=== PATIENT | female | born 1945 | race Caucasian/White ===

== ENCOUNTER 2018-10-12 11:37 | Inpatient (IN) | payer OTHER ==
[2018-10-12] MEDS ORDERED: LR 1,000 ML IV ONE (11:53)
[2018-10-12] MEDS ORDERED: LIDOCAINE 1% 300 MG/30 ML SDV ONE (12:44)
[2018-10-12] MEDS ORDERED: BUPIVACAINE 0.5% 30 ML SDV ONE (12:44)
--- NOTE | 2018-10-12 13:43 | PDHPUP ---
History & Physical Update H&P update statement: This history and physical update is based on an assessment of the patient which was completed after admission or registration (within 24 hours), but prior to the surgery/procedure. H&P update: H&P reviewed & patient examined, no change in patient's condition since H&P completed
[2018-10-12] MEDS ORDERED: ceFAZolin 2 GM/DEXTROSE 100 ML IV ONE (13:44)
[2018-10-12] MEDS ORDERED: MIDAZOLAM 2 MG/2 ML VIAL IVP ONE (14:09)
--- NOTE | 2018-10-12 14:12 | PDANEPAE ---
ANE History of Present Illness Ventral hernia hernia repair ANE Past Medical History - Cardiovascular History Hx Hypertension: No Hx Arrhythmias: No Hx Chest Pain: No Hx Coronary Artery / Peripheral Vascular Disease: No Hx CHF / Valvular Disease: No Hx Palpitations: No - Pulmonary History Hx COPD: No Hx Asthma/Reactive Airway Disease: No Hx Recent Upper Respiratory Infection: No Hx Oxygen in Use at Home: No Hx Sleep Apnea: No Sleep Apnea Screening Result - Last Documented: Positive - Neurologic History Hx Cerebrovascular Accident: No Hx Seizures: No Hx Dementia: No - Endocrine History Hx Diabetes: Yes Hypothyroid: No Hyperthyroid: No Obesity: moderate Endocrine History Comment: INDDM SINCE 1998 - Renal History Hx Renal Disorders: No Renal History Comment: FREQUENCY - Liver History Hx Hepatic Disorders: No - Neurological & Psychiatric Hx Hx Neurological and Psychiatric Disorders: Yes Neurological / Psychiatric History Comment: SITUATIONAL ANXIETY - Cancer History Hx Cancer: No - Congenital Disorder History Hx Congenital Disorders: No - GI History GERD: mild Hx Gastrointestinal Disorders: Yes Gastrointestinal History Comment: PREV WAGNER FUNDOPLICATION. STILL HAS SOME HEARTBURN - Other Health History Other Health History: FIBROMYALGIA - Chronic Pain History Chronic Pain: No (GENERALIZED FROM FIBROMYALGIA) - Surgical History Prior Surgeries: HERNIA REPAIR. RT TOTAL KNEE 2012. RT TOTAL KNEE REVISION. LT KNEE RECONSTRUCTION TO STRENGTHEN. LT KNEE REMVL KNEE CAP. STACI. WAGNER FUNDOPLICATION 1988. RT WRIST FUSION ANE Review of Systems Review of Systems: - Exercise capacity METS (RN): 4 METS ANE Patient History - Allergies Allergies/Adverse Reactions: No Known Allergies Allergy (Unverified 02/25/16 15:12) - Home Medications Home Medications: Cholecalciferol Vit D3 [Vitamin D3 (*)] 5,000 units PO DAILY 02/25/16 [Last Taken 10/11/18] Gabapentin [Neurontin 300 MG (*)] 600 mg PO TID 02/25/16 [Last Taken 10/11/18] INSULIN LISPRO humALOG 75/25 [humALOG MIX 75-25] 40 units SC BIDMEAL 02/25/16 [ Last Taken 10/11/18] Nortriptyline HCl [Pamelor 25 mg (*)] 25 mg PO HS 02/25/16 [Last Taken 10/12/18] metFORMIN HCL [Glucophage 500 mg (*)] 1,000 mg PO BIDMEAL 02/25/16 [Last Taken 10/11/18] Linzess 10/11/18 [Last Taken 10/11/18] Losartan Potassium 10/11/18 [Last Taken 10/11/18] Ocuvite 10/11/18 [Last Taken 10/11/18] Pantoprazole Sodium 10/11/18 [Last Taken 10/12/18] Ranitidine HCl 10/11/18 [Last Taken 10/04/18] - NPO status NPO Status: no food or drink >8 hours NPO Since - Liquids (Date): 10/12/18 NPO Since - Liquids (Time): 10:00 NPO Since - Solids (Date): 10/11/18 NPO Since - Solids (Time): 22:00 - Smoking Hx Smoking Status: Never smoked ANE Labs/Vital Signs - Labs Result Diagrams: 10/12/18 12:30 - Vital Signs Blood Pressure: 159/82 Heart Rate: 100 Respiratory Rate: 16 O2 Sat (%): 96 Height: 157.48 cm Weight: 99.337 kg ANE Physical Exam - Airway Neck exam: decreased ROM Mallampati Score: Class 1 Mouth exam: normal dental/mouth exam, poor dentition - Pulmonary Pulmonary: no respiratory distress, no rales or rhonchi - Cardiovascular Cardiovascular: regular rate and rhythym (Occ skip beat) - ASA Status ASA Status: III ANE Anesthesia Plan Anesthesia Plan: general endotracheal anesthesia Regional Anesthesia: TAP block
[2018-10-12] MEDS ORDERED: PROPOFOL/EMULSION 500 MG/50 ML BOTTLE IV ONE ×2 (14:25→14:26)
[2018-10-12] MEDS ORDERED: fentaNYL 250 MCG/5 ML INJ ONE (14:25)
[2018-10-12] MEDS ORDERED: ROCURONIUM 100 MG/10 ML VIAL ONE (14:26)
[2018-10-12] MEDS ORDERED: ONDANSETRON 4 MG/2 ML VIAL ONE (14:26)
[2018-10-12] MEDS ORDERED: DEXAMETHASONE 4 MG/ML VIAL ONE (14:26)
[2018-10-12] MEDS ORDERED: GLYCOPYRROLATE 0.2 MG/1 ML VIAL ONE (14:26)
[2018-10-12] MEDS ORDERED: ROPIVACAINE HCL 150 MG/30 ML INJ ONE (16:11)
[2018-10-12] MEDS ORDERED: SUGAMMADEX SODIUM 200 MG/2 ML VIAL IVP ONE (16:53)
[2018-10-12] MEDS ORDERED: fentaNYL 100 MCG/2 ML INJ ONE ×2 (17:03→17:47)
[2018-10-12] MEDS ORDERED: ONDANSETRON 4 MG/2 ML VIAL IVP PRN ×2 (17:14→17:24)
[2018-10-12] MEDS ORDERED: ZOLPIDEM TARTRATE 5 MG TAB PO PRN (17:14)
[2018-10-12] MEDS ORDERED: METOCLOPRAMIDE 10 MG/2 ML VIAL IVP PRN (17:14)
--- NOTE | 2018-10-12 17:20 | POSTOPPROG ---
Post Op Note Date of Operation: 10/12/18 Surgeon: Michael Wheeler [employer] Engine Mechanic: carlos chicas pac Anesthesiologist: Mj Anesthesia: GET(General Endotracheal) Pre-op Diagnosis: ventral incisional hernia recurrent Post-op Diagnosis: same Procedure: Lap ventral hernia repair with 20x25 cm symbotex mesh Findings: fenestrated midline 3 cm hernia Inf/Abcess present in the surg proc area at time of surgery?: No EBL: Minimal Specimen(s): none
[2018-10-12] MEDS ORDERED: HYDROmorphONE/DILAUDID 2 MG/ML INJ ONE (17:22)
[2018-10-12] MEDS ORDERED: PROMETHAZINE HCL 25 MG/ML INJ IVP PRN (17:24)
[2018-10-12] MEDS ORDERED: NALOXONE HCL 0.4 MG/ML INJ IVP PRN (17:24)
[2018-10-12] MEDS: HYDROmorphONE/DILAUDID 2 MG/ML INJ IVP PRN ×4 (17:25→18:03)
[2018-10-12] MEDS: fentaNYL 100 MCG/2 ML INJ IVP PRN ×2 (17:48→18:02)
[2018-10-12] MEDS: HYDROmorphONE/DILAUDID 1 MG/ML INJ IVP PRN ×3 (20:09→21:56)
[2018-10-12] MEDS: GABAPENTIN 300 MG CAP PO SCH (20:15)
[2018-10-12] MEDS: metFORMIN HCL 500 MG TAB PO SCH (20:16)
[2018-10-12] MEDS: NORTRIPTYLINE HCL 25 MG CAP PO SCH (20:16)
[2018-10-12] MEDS: INSULIN LISPRO humALOG 75/25 100 UNIT/ML SYR SC SCH (20:17)
[2018-10-12] MEDS ORDERED: GABAPENTIN 300 MG CAP PO SCH (22:00)
[2018-10-12] MEDS: KETOROLAC 15 MG/1 ML SDV IVP SCH (23:54)
--- NOTE | 2018-10-13 03:37 | GOP ---
[f rep st] OPERATIVE REPORT DATE OF OPERATION: SURGEON: Michael Wheeler MD BOOTMAKER HAND: Marian CHICAS. Use of a PA for assistance in this case is standard and required for safety. ANESTHESIA: General endotracheal anesthesia. ANESTHESIOLOGIST: Leny Barker MD. PREOPERATIVE DIAGNOSIS: Ventral incisional hernia. POSTOPERATIVE DIAGNOSIS: Ventral incisional hernia. PROCEDURE PERFORMED: Laparoscopic ventral incisional hernia repair, recurrent ventral hernia repair, with Symbotex mesh 20 x 25 cm. FINDINGS: SPECIMENS: None. ESTIMATED BLOOD LOSS: 5 mL. INDICATIONS: This is a 72-year-old woman known to us for prior paraesophageal hernia who presents with ventral incisional hernias. DESCRIPTION OF PROCEDURE: Patient was brought into the operating room. After induction of endotracheal anesthesia in supine position, her abdomen was prepped with chlorhexidine and draped sterilely. A time-out procedure was performed according to institutional standards. Local anesthetic was infused in skin and subcutaneous tissues at the trocar site. Optical trocar placement was done in the left upper quadrant. The abdomen was insufflated fully to 15 torr with carbon dioxide. Working trocars were placed into the lower midline and right flank under direct visualization. Extensive adhesiolysis was performed of bowel and omentum to the anterior abdominal wall, and after complete dissection of the space with the hernias, it was measured to be 15 cm x 3 to 4 cm across. A 15 x 10 cm mesh would not have been adequate. Therefore , a 20 x 25 cm mesh was chosen. The mesh was placed into the abdomen through a midline incision through one of the hernias. This was reapproximated with 4-0 Monocryl. 0 Vicryl was used to approximate the mesh to the anterior abdominal wall using a suture passing device, and it was tacked in circumferentially using absorbable fixation. After ensuring it was flat and at a pressure of 8 torr, the area was ensured to be hemostatic. Needle, instrument, and sponge counts were verified to be correct. All ports were closed at the skin level using 4-0 Monocryl and Dermabond. The patient was awakened. A TAP block was placed by Anesthesia before extubation. She was taken to the recovery room in stable condition. No immediate complications. COMPLICATIONS: None. /[id number]/MODL MTDD
[2018-10-13] MEDS: GABAPENTIN 300 MG CAP PO SCH ×4 (06:11→21:33)
[2018-10-13] MEDS: KETOROLAC 15 MG/1 ML SDV IVP SCH ×4 (06:11→23:41)
[2018-10-13] MEDS ORDERED: ENOXAPARIN 30 MG/0.3 ML SYR SC SCH (09:00)
--- NOTE | 2018-10-13 09:03 | SOAPPROG ---
SOOMAR Progress Note Assessment/Plan: Assessment/Plan: Postop day 1 status post laparoscopic ventral hernia repair with 20 x 25 cm mesh. Patient is doing as well as expected normal pessimistic view of her pain and progression. No signs of complication at this time. Regular rate and rhythm Clear to auscultation Abdomen soft nondistended incisions clean dry and intact. No signs of recurrent hernia. Extremities with trace edema Overall doing well Blood sugar under fairly good control last POC 169 Patient feels her pain is not well-controlled at this time. Will continue to modify her oral analgesics to control pain. Anticipate discharge in the next 24 -48 hours. Prescriptions and discharge information in the chart 10/13/18 09:01 Objective: Vital Signs Temp Pulse Resp BP Pulse Ox 36.7 C 86 18 122/63 H 90 L 10/13/18 08:00 10/13/18 08:00 10/13/18 08:00 10/13/18 08:00 10/13/18 08:00 Laboratory Results 10/12/18 12:30 10/12/18 10/13/18 10/14/18 05:59 05:59 05:59 Intake Total 1030 Output Total 560 Balance 470 ICD10 Worksheet Patient Problems: Problems Problem Status Onset Paraesophageal hernia Acute
[2018-10-13] MEDS: INSULIN LISPRO humALOG 75/25 100 UNIT/ML SYR SC SCH ×2 (09:13→17:39)
[2018-10-13] MEDS: metFORMIN HCL 500 MG TAB PO SCH ×2 (09:14→17:39)
[2018-10-13] MEDS: PANTOPRAZOLE SODIUM 40 MG TAB PO SCH (09:14)
[2018-10-13] MEDS: oxyCODONE IR 5 MG TAB PO PRN ×4 (11:10→23:41)
--- NOTE | 2018-10-13 12:04 | ASMTCMCOM ---
CM Note CM Note Notes: Reviewed chart, pt admitted for scheduled hernia repair. She lives at home with her , no therapies ordered. Anticipate pt will dc home when medically stable. CM available for any changes. DC Plan: Independent Date Signed: 10/13/2018 12:04 PM Electronically Signed By:Dee Farah RN
[2018-10-13] MEDS: NORTRIPTYLINE HCL 25 MG CAP PO SCH (21:33)
[2018-10-14] MEDS: oxyCODONE IR 5 MG TAB PO PRN ×6 (03:30→22:01)
[2018-10-14] MEDS: GABAPENTIN 300 MG CAP PO SCH ×4 (05:07→21:57)
[2018-10-14] MEDS: KETOROLAC 15 MG/1 ML SDV IVP SCH ×4 (05:07→23:41)
--- NOTE | 2018-10-14 07:50 | SOAPPROG ---
SOAP Progress Note Assessment/Plan: Assessment:c/o pain. min ambulation/activity yesterday. avss. abd soft. incis clean. s/p lap ventral. slow progress. cont pain control efforts. pt/ ot to assist. hopeful dc tomorrow. Plan: 10/14/18 07:50 Objective: Vital Signs Temp Pulse Resp BP Pulse Ox 36.9 C 89 18 117/68 95 10/14/18 03:28 10/14/18 03:28 10/14/18 03:28 10/14/18 03:28 10/14/18 03:28 Laboratory Results 10/12/18 12:30 10/13/18 10/14/18 10/15/18 05:59 05:59 05:59 Intake Total 1030 400 Output Total 560 300 Balance 470 100 ICD10 Worksheet Patient Problems: Problems Problem Status Onset Paraesophageal hernia Acute
[2018-10-14] MEDS: metFORMIN HCL 500 MG TAB PO SCH ×2 (09:06→17:56)
[2018-10-14] MEDS: INSULIN LISPRO humALOG 75/25 100 UNIT/ML SYR SC SCH ×2 (09:06→17:56)
[2018-10-14] MEDS: PANTOPRAZOLE SODIUM 40 MG TAB PO SCH (09:07)
[2018-10-14] MEDS: ENOXAPARIN 40 MG/0.4 ML SYR SC SCH ×2 (09:07→21:58)
--- NOTE | 2018-10-14 17:26 | PDMN ---
Medical Necessity Medical necessity: [facility] [place] S1305 Hernia Repair, Non-Hiatal, A-1 day: 72 yo s/p lap ventral hernia repair w/ mesh, initially OBS but pt cont to have issues w/ ambulation and activity and ongoing c/o uncontrolled pain. PT/OT ordered. Slower progress than expected. Pt requires additional MN for ongoing issues above. Change to IP status 10/14/18@1705, pt not meeting d/c criteria.
[2018-10-14] MEDS: NORTRIPTYLINE HCL 25 MG CAP PO SCH (21:57)
[2018-10-15] MEDS: GABAPENTIN 300 MG CAP PO SCH ×2 (05:12→11:50)
[2018-10-15] MEDS: KETOROLAC 15 MG/1 ML SDV IVP SCH ×2 (05:12→11:50)
[2018-10-15] MEDS: oxyCODONE IR 5 MG TAB PO PRN ×3 (05:12→12:22)
[2018-10-15 07:26] VITALS: BP 125/75
[2018-10-15] MEDS: INSULIN LISPRO humALOG 75/25 100 UNIT/ML SYR SC SCH (08:18)
--- NOTE | 2018-10-15 08:18 | SOAPPROG ---
SOAP Progress Note Assessment/Plan: Assessment:better day and night. pain control improved. no nausea. ambulated. AVSS. comfortable. abd dist, soft. incis clean. improved. home today. c/o pain. min ambulation/activity yesterday. avss. abd soft. incis clean. s /p lap ventral. slow progress. cont pain control efforts. pt/ot to assist. hopeful dc tomorrow. Plan: 10/14/18 07:50 10/15/18 08:18 Objective: Vital Signs Temp Pulse Resp BP Pulse Ox 37.1 C 82 83 H 125/75 H 94 10/15/18 07:24 10/15/18 07:24 10/15/18 07:24 10/15/18 07:24 10/15/18 07:24 Laboratory Results 10/12/18 12:30 10/14/18 10/15/18 10/16/18 05:59 05:59 05:59 Intake Total 400 150 Output Total 300 1000 Balance 100 -850 ICD10 Worksheet Patient Problems: Problems Problem Status Onset Paraesophageal hernia Acute
[2018-10-15] MEDS: ENOXAPARIN 40 MG/0.4 ML SYR SC SCH (08:19)
[2018-10-15] MEDS: PANTOPRAZOLE SODIUM 40 MG TAB PO SCH (08:22)
[2018-10-15] MEDS: metFORMIN HCL 500 MG TAB PO SCH (08:22)
--- NOTE | 2018-10-15 15:24 | GDS ---
[f rep st] DISCHARGE SUMMARY REASON FOR ADMISSION: Symptomatic ventral hernia. HOSPITAL COURSE: 72-year-old female admitted with a symptomatic ventral hernia. She underwent a laparoscopic repair. She had a benign postoperative course. She was discharged to home on the , in improved condition with adequate pain control with oral analgesics, tolerating a regular diet, and ambulating in the halls independently. She was to resume all pre-hospital medications. She was given prescriptions for OxyIR as needed for breakthrough discomfort. She will be seen in followup by Dr. Wheeler in 1-2 weeks. Full activity instructions were explained prior to leaving. /[id number]/MODL MTDD
--- NOTE | 2018-10-15 18:42 | POSTANESTH ---
Post Anesthetic Evaluation Cardiovascular Status: Normal, Stable Respiratory Status: Normal, Stable Level of Consciousness/Mental Status: Can Participate in Eval Pain Control: Adequate, Prn Tx Ordered Nausea/Vomiting Control: Adequate, Prn Tx Ordered Complications Possibly Related to Anesthesia: None Noted (Chart review DCed home )
== END 2018-10-15 12:30 | disposition home or self-care (01) | DRG 355 ==
LOC: FSGY 11:37 → F3N 17:14 → F3E 18:31 → OBSVTOIN 10-14 17:05
PROVIDERS: ADMIT Surgery; ATTEND Surgery
PROC: 0WUF0JZ Supplement Abdominal Wall with Synthetic Substitute, Open Approach (ICD-10-PCS; principal; 2018-10-12 13:15)
DX: K43.2 Incisional hernia without obstruction or gangrene (principal); K44.9 Diaphragmatic hernia without obstruction or gangrene; G47.30 Sleep apnea, unspecified; E11.9 Type 2 diabetes mellitus without complications; F41.8 Other specified anxiety disorders; M79.7 Fibromyalgia; Z96.651 Presence of right artificial knee joint
CPT/HCPCS: 97116-GP; 97161-GP; 97165-GO; 97535-GO; C1781; J0690; J1100; J1170; J1650; J1815; J1885; J2250; J2405; J2704; J2795; J3010